=== PATIENT | female | born 1940 | race Two or more races ===

== ENCOUNTER 2018-01-01 09:15 | Emergency (ER) | payer OTHER ==
[~2018-01-01] VITALS: Ht 157.5 cm; Wt 110.7 kg
[~2018-01-01 09:15] MED LIST: ACET30TA15 PO; ATEN-60 PO; BECL0.07 IN; DICL1GEL26 TOP; FEBU40TA PO; GABA300C10 PO; INSLANTI SC; LUBI24CA6 PO; METF-370 PO; ROSU5TAB5 PO; WARF6TAB21 PO
[2018-01-01] MEDS: SODIUM CHLORIDE 0.9% 1,000 ML IV ONE (09:34)
[2018-01-01] MEDS ORDERED: MORPHINE SULFATE 4 MG/ML SYR/VIAL IV ONE (09:45)
[2018-01-01] MEDS ORDERED: ONDANSETRON HCL 4 MG/2 ML VIAL IV ONE (09:45)
[2018-01-01 10:26] LABS: INR 1.56 (0.9-1.15); Partial Thromboplastin Time 30.3 sec (22.64-33.71); Prothrombin Time 17.1 sec (9.37-12.3)
[2018-01-01] MEDS: HYDROcodone-ACET 10/325MG TAB PO ONE (10:28)
[2018-01-01] MEDS: ONDANSETRON ODT 4 MG TAB PO ONE (10:29)
[2018-01-01 10:38] LABS: Alanine Aminotransferase 60 U/L (13-56); Albumin 3.3 g/dL (3.4-5.0); Alkaline Phosphatase 74 U/L (45-117); Anion Gap 9 (5-15); Aspartate Aminotransferase 57 U/L (15-37); BUN/Creatinine Ratio 13.4; Bilirubin, Total 0.5 mg/dL (0.2-1.0); Blood Urea Nitrogen 19 mg/dL (7-18); Calcium 9.5 mg/dL (8.5-10.1); Carbon Dioxide 20 mmol/L (21-32); Chloride 106 mmol/L (98-107); GFR African American 46 mL/min; GFR Non-African American 38 mL/min; Glucose 201 mg/dL (74-106); Lipase 199 U/L (73-393); Potassium 4.6 mmol/L (3.5-5.1); Sodium 135 mmol/L (136-145); Total Protein 7.7 g/dL (6.4-8.2)
[2018-01-01 10:48] LABS: Basophils # (auto) 0.1 uL; Basophils % (auto) 1.2 % (0.0-2.0); Eosinophils # (auto) 0.1 uL; Eosinophils % (auto) 2.3 % (0.0-7.0); Hematocrit 40.9 % (36.0-46.0); Hemoglobin 13.7 g/dL (12.2-16.2); Lymphocytes # (auto) 1.1 uL; Lymphocytes % (auto) 24.8 % (10.0-50.0); Mean Corpuscular Hemoglobin 31.4 pg (28.0-32.0); Mean Corpuscular Hgb Conc. 33.4 g/dL (32.0-36.0); Mean Corpuscular Volume 93.9 fL (80.0-100.0); Monocytes # (auto) 0.5 uL; Monocytes % (auto) 9.9 % (0.0-12.0); Neutrophils # (auto) 2.8 uL; Neutrophils % (auto) 61.8 % (37.0-80.0); Nucleated Red Blood Cells % 0.1 %; Platelet Count (auto) 225 10^3/uL (140-450); Red Blood Cells 4.36 10^6/uL (4.0-5.20); Red Cell Distribution Width 13.9 % (11.8-14.3); White Blood Cell 4.5 10^3/uL (4.4-10.8)
[2018-01-01 11:00] VITALS: BP 136/67
[2018-01-01 11:08] LABS: Urine Bacteria NONE SEEN /hpf (None Seen); Urine Blood Negative /uL (Negative); Urine Specific Gravity 1.006 (1.001-1.035); Urine WBC <1 /hpf (0 - 5)
== END 2018-01-01 17:29 | disposition home or self-care (01) ==
LOC: ER 09:15
DX: K43.9 Ventral hernia without obstruction or gangrene (principal); E11.9 Type 2 diabetes mellitus without complications; E78.5 Hyperlipidemia, unspecified; I10 Essential (primary) hypertension; Z88.8 Allergy status to other drugs, medicaments and biological substances; Z88.1 Allergy status to other antibiotic agents; Z79.01 Long term (current) use of anticoagulants; Z79.4 Long term (current) use of insulin; Z95.0 Presence of cardiac pacemaker; Z96.641 Presence of right artificial hip joint; Z90.49 Acquired absence of other specified parts of digestive tract
CPT/HCPCS: 36415; 71045; 74176; 80053; 81001; 83605; 83690; 84484; 85610; 85730; 87040; 93005; 99285; Q0162